=== PATIENT | female | born 1950 | race Caucasian/White ===

== ENCOUNTER 2021-09-10 15:01 | Outpatient (CLI) | payer MEDICARE, OTHER | END 2021-09-10 15:02 | disposition home or self-care (01) | LOC: CSHMAMMO 15:01 | PROVIDERS: ATTEND Family Medicine | DX: Z12.31 Encounter for screening mammogram for malignant neoplasm of breast (principal); Z85.42 Personal history of malignant neoplasm of other parts of uterus; Z98.890 Other specified postprocedural states | CPT/HCPCS: 77063; 77067 ==

== ENCOUNTER 2023-01-06 08:44 | Outpatient (CLI) | payer MEDICARE, OTHER | END 2023-01-06 08:45 | disposition home or self-care (01) | LOC: CSHMAMMO 08:44 | PROVIDERS: ATTEND Family Medicine | DX: Z12.31 Encounter for screening mammogram for malignant neoplasm of breast (principal); Z85.42 Personal history of malignant neoplasm of other parts of uterus; Z98.890 Other specified postprocedural states | CPT/HCPCS: 77063; 77067 ==

== ENCOUNTER 2023-01-12 10:02 | Outpatient (CLI) | payer MEDICARE, OTHER | END 2023-01-12 10:03 | disposition home or self-care (01) | LOC: CSHULT 10:02 | PROVIDERS: ATTEND Family Medicine | DX: R93.2 Abnormal findings on diagnostic imaging of liver and biliary tract (principal); K76.89 Other specified diseases of liver | CPT/HCPCS: 76705 ==

== ENCOUNTER 2023-03-08 10:27 | Outpatient (CLI) | payer MEDICARE, OTHER | END 2023-03-08 10:28 | disposition home or self-care (01) | LOC: CSHMRI 10:27 | PROVIDERS: ATTEND Neurological Surgery | DX: M47.12 Other spondylosis with myelopathy, cervical region (principal); M47.22 Other spondylosis with radiculopathy, cervical region; R26.89 Other abnormalities of gait and mobility; I82.402 Acute embolism and thrombosis of unspecified deep veins of left lower extremity; M47.816 Spondylosis without myelopathy or radiculopathy, lumbar region | CPT/HCPCS: 72052; 72100; 72141 ==

== ENCOUNTER 2023-12-22 08:35 | Outpatient (CLI) | payer MEDICARE, OTHER | END 2023-12-22 08:36 | disposition home or self-care (01) | LOC: CSHSLEEP 08:35 | PROVIDERS: ATTEND Internal Medicine | DX: G47.33 Obstructive sleep apnea (adult) (pediatric) (principal) | CPT/HCPCS: 95811 ==

== ENCOUNTER 2024-01-09 08:50 | Outpatient (CLI) | payer MEDICARE, OTHER | END 2024-01-09 08:51 | disposition home or self-care (01) | LOC: CSHMAMMO 08:50 | PROVIDERS: ATTEND Family Medicine | DX: Z12.31 Encounter for screening mammogram for malignant neoplasm of breast (principal); Z85.42 Personal history of malignant neoplasm of other parts of uterus; Z98.890 Other specified postprocedural states | CPT/HCPCS: 77063; 77067 ==

== ENCOUNTER 2024-11-22 09:19 | Outpatient (CLI) | payer MEDICARE, OTHER | END 2024-11-22 09:20 | disposition home or self-care (01) | LOC: CSHCT 09:19 | PROVIDERS: ATTEND Internal Medicine | DX: Z12.2 Encounter for screening for malignant neoplasm of respiratory organs (principal); Z87.891 Personal history of nicotine dependence; J44.9 Chronic obstructive pulmonary disease, unspecified | CPT/HCPCS: 71271 ==